=== PATIENT | female | born 1995 | race Caucasian/White ===

== ENCOUNTER 2019-04-27 17:27 | Outpatient (CLI) | payer OTHER ==
--- NOTE | 2019-04-30 10:11 | Ultrasound Report ---
Reason: GESTATIONAL DIABETES Procedure Date: 04/27/2019 Accession Number: [id number] / [id number] Procedure: US - OB F/U or Repeat CPT Code: Final Report FULL RESULT: EXAM: FOLLOW-UP OBSTETRICAL ULTRASOUND EXAM DATE: 04/27/2019 07:10 PM. CLINICAL HISTORY: GESTATIONAL DIABETES. COMPARISON: None. TECHNIQUE: Real-time sonographic evaluation of the fetus performed by the network engineering advisor. Additional transvaginal imaging to more accurately evaluate cervical length/placental position/etc. Multiple product sales representative static images were saved for review. DATING: Established EGA 35 weeks 3 days with MACK 05/29/2019 based on physician stated. EGA 34 weeks 6 days with MACK 06/02/2019 based on the current ultrasound. GENERAL EVALUATION Hameed . Cardiac activity: 158 bpm. movement: Visualized. Presentation: Cephalic. Placenta: Anterior position. Amniotic fluid: Normal. JEANETH 17.2 cm. MVP 4.4 cm. BIOMETRY Bi-Parietal Diameter (BPD): 8.7 cm, 35 weeks 1 day Head Circumference (HC): 32.4 cm, 36 weeks 4 days Abdominal Circumference (AC): 32.2 cm, 36 weeks 1 day Femur Length (FL): 6.1 cm, 31 week 5 days Estimated Weight: 2548 g, 34 percentile for 35 weeks 3 days. IMPRESSION: 1. Hameed live intrauterine with gestational age 35 weeks 3 days based on physician assigned dating. 2. Estimated weight is within expected limits for assigned dating. Noting femur length is behind expected at 31 weeks 5 days RAFAELA
== END 2019-04-27 17:28 | disposition home or self-care (01) ==
LOC: DI 17:27
PROVIDERS: ATTEND Nurse Practitioner Obstetrics & Gynecology
DX: O24.410 Gestational diabetes mellitus in pregnancy, diet controlled (principal); Z3A.35 35 weeks gestation of pregnancy
CPT/HCPCS: 76816

== ENCOUNTER 2019-05-01 12:01 | Outpatient (CLI) | payer OTHER ==
[2019-05-02 21:25] LABS: TRICHOMONAS VAGINALIS DNA NEGATIVE (NEGATIVE)
== END 2019-05-01 23:59 | disposition home or self-care (01) ==
LOC: LAB.R 12:01
PROVIDERS: ATTEND Nurse Practitioner Obstetrics & Gynecology
DX: Z36.85 Encounter for antenatal screening for Streptococcus B (principal); Z36.89 Encounter for other specified antenatal screening
CPT/HCPCS: 87491; 87591; 87661; 87797

== ENCOUNTER 2019-05-18 07:00 | Outpatient (CLI) | payer OTHER | END 2019-05-18 23:59 | disposition home or self-care (01) | LOC: LAB.R 07:00 | PROVIDERS: ATTEND Obstetrics & Gynecology | DX: Z22.330 Carrier of Group B streptococcus (principal) | CPT/HCPCS: 87081; 87797 ==

== ENCOUNTER 2019-05-21 22:46 | Outpatient (CLI) | payer OTHER ==
[2019-05-21 23:11] VITALS: BP 123/84
[2019-05-22 00:18] LABS: RUPTURE OF MEMBRANES PLUS NEGATIVE (NEGATIVE)
--- NOTE | 2019-05-31 09:33 | PROCEDURE REPORT ---
- HPI Diagnosis/Indication for NST: Other (Rule out SROM) Current EDU 05/29/19 Gestation 38 Weeks and 6 Days 1 Para 0 Vital Signs Temperature 36.7 C 05/21/19 23:00 Heart Rate 88 05/21/19 23:00 Respiratory Rate 18 05/21/19 23:00 Blood Pressure 123/84 H 05/21/19 23:00 O2 Saturation 100 05/21/19 23:00 Temperature 36.7 C 05/21/19 23:00 Heart Rate 88 05/21/19 23:00 Respiratory Rate 18 05/21/19 23:00 Blood Pressure 123/84 H 05/21/19 23:00 O2 Saturation 100 05/21/19 23:00 - NST Procedure base line 120 good exceleration - Results and Plan Findings/Impression: reactive NST, Rom + negative Plan: return for labor or SROM
== END 2019-05-22 00:47 | disposition home or self-care (01) ==
LOC: WFO 22:46 → FBP 22:48 → WFO 05-22 00:47
PROVIDERS: ATTEND Obstetrics & Gynecology
DX: Z34.03 Encounter for supervision of normal first pregnancy, third trimester (principal); Z3A.38 38 weeks gestation of pregnancy
CPT/HCPCS: 84112; 99213

== ENCOUNTER 2019-05-22 14:11 | Inpatient (IN) | payer OTHER ==
[2019-05-22 15:12] LABS: BASOPHILS % (AUTO) 0.4 %; EOSINOPHILS # (AUTO) 0.1 10^3/uL (0.0-0.7); EOSINOPHILS % (AUTO) 1.1 %; HGB - HEMOGLOBIN 14.1 g/dL (12.0-16.0); LYMPHOCYTES # (AUTO) 1.4 10^3/uL (1.5-3.5); LYMPHOCYTES % (AUTO) 25.5 %; MEAN CORPUSCULAR HEMOGLOBIN 29.3 pg (27.0-31.0); MEAN CORPUSCULAR HGB CONC 33.7 g/dL (32.0-36.0); MEAN CORPUSCULAR VOLUME 86.9 fL (81.0-99.0); MEAN PLATELET VOLUME 11.2 fL (7.9-10.8); MONOCYTES # (AUTO) 0.5 10^3/uL (0.0-1.0); MONOCYTES % (AUTO) 8.9 %; NEUTROPHILS # (AUTO) 3.5 10^3/uL (1.5-6.6); NEUTROPHILS % (AUTO) 63.9 %; PLT - PLATELET COUNT 141 10^3/uL (130-450); RED BLOOD COUNT 4.81 10^6/uL (4.20-5.40); WHITE BLOOD COUNT 5.4 x10^3/uL (4.8-10.8)
[2019-05-22] MEDS: LACTATED RINGERS 1,000 ML IV SCH (15:21)
[2019-05-22] MEDS: SODIUM CHLORIDE FLUSH 0.9% 10 ML SYRINGE IVP PRN ×2 (15:22→23:21)
[2019-05-22] MEDS ORDERED: ceFAZolin 2 GM in SODIUM CHLORIDE 0.9% 100ML 100 ML IV ONE (15:30)
[2019-05-22] MEDS ORDERED: SODIUM CHLORIDE FLUSH 0.9% 10 ML SYRINGE IVP SCH (17:00)
--- NOTE | 2019-05-22 17:26 | HISTORY & PHYSICAL EXAMINATION ---
Admit History - Visit Reason Visit Reason: Other - : 1 Parity: 0 Premature: 0 Ectopic: 0 : 0 Care: positive: [facility] Risk/History: positive: None Complications This : positive: None Smoking Status: Former smoker - Mother's Labs Mother's Blood Type: positive: O Mother's RH: positive: Positive GBS: positive: Group B Strep Positive Rubella Status: positive: Immune Meds/Allgy - Allergies Allergies/Adverse Reactions: Allergies Allergy/AdvReac Type Severity Reaction Status Date / Time Penicillins Allergy Intermediate Rash Verified 05/22/19 16:21 Review of Systems - Constitutional Constitutional: denies: Fatigue, Fever, Chills, Malaise - Eyes Eyes: denies: Blurred vision, Spots in vision, Dipolpia - Cardiovascular Cariovascular: reports: Edema. denies: Irregular heart rate, Palpitations, Chest pain - Gastrointestinal Gastrointestinal: denies: Abdominal pain, Constipation, Diarrhea, Nausea, Vomiting - Integumentary Integumentary: denies: Rash, Pruritis - Neurological Neurological: denies: Headache Physical - Abdominal Exam Vital Signs: Temp Pulse Resp BP Pulse Ox 37.1 C 101 H 16 124/83 H 100 05/22/19 14:40 05/22/19 14:40 05/22/19 14:40 05/22/19 14:40 05/22/19 14:40 Uterine Resting Tone: positive: Soft - Monitoring Heart Rate Baseline: 140 Strip Review: positive: Category I - Presentation Presentation: positive: Vertex - Vaginal Exam Membranes: positive: Membranes intact Dilation (in cm): 4 Effacement (%): 75 Station: positive: -1 Cervical Position: positive: Midposition - Speculum Exam Speculum Exam Performed: positive: No Plan for Labor - Plan For Labor I expect patient to be DC'd or transferred within 96 hours.: Yes Plan for Labor: HPI: Chhaya presents today to [facility] for induction of labor at 39.0wks gestation. She [facility] a patient of [facility] since her transfer of care from [facility] at 32.2wks gestation. She has received regular care throughout the course of her . She has been diagnosed with gestational diabetes and has maintained tight glycemic control with diet. Her growth and JEANETH in the late third trimester were WNL with EFW 34th percentile and JEANETH 17.2. She is also noted to be GBS positive and allergic to penicillin. Due to a lab error there were not sensitivities run with the GBS collection. The patient will be treated with cefazolin per protocol. Upon arrival her cervix was noted to be 3-4/90/-1, midposition, vertex and soft. She was admitted to [facility] for management and will proceed with pitocin IOL after 4 hours of antibiotic treatment per CDC guidelines. OB Hx: G1: Current- G1GDM PMHx: Anxiety, depression, ovarian cysts Surgical Hx: [place] teeth removal (2008), left foot Muniz's neuroma removal Family hx: HTN- father; Diabetes- uncle; cancer- mother Social Hx: Former smoker, no ETOH or IVDA. currently deployed. Mother and father present for support. labs: some labs missing from maternal record due to transfer of care and ordered today. O pos/Rubella immune Gentic testing: neg quad; CF neg FAS: WNL with exception of limited profile view. Anterior placenta, no previa. JEANETH WNL. Glucola ; 1 hour GTT elevated; 3hr GTT 96, 189, 144, 121 - diagnosed GDM TDAP & influenza - outside clinic GBS positive - penicillin allergies- sensitivities pending. Repeat GC/CT negative Growth and JEANETH 04/27/2019 WNL - EFW 34th%tile HSV: denies Breast pump Rx provided MOD: Anticipate ; Expecting a male and planning to name him Israel; desires unmedicated delivery pp contraception: barrier method Physical Exam: Normocephalic, atraumatic Heart RRR w/o M/G/R Lungs CTAB Abdomen gravid, soft, nontender EFW 3200g SVE 3-4/90/-1, midposition, soft, vertex Contractions not palpable or appreciated via tocometry FHR baseline 140s, moderate variability, + accels, no decels Bilateral LE's 1+ pitting edema Mood is good Assessment: 24yo @ 39.0wks gestation by LMP A1GDM GBS positive FHR Category I Plan: Continuous monitoring GBS prophylaxis per protocol Initiate pitocin when 4 hour of prophylaxis for GBS postive status achieved. Reviewed plan of care with patient, family, and labor RN at the bedside who are all in agreement with above plan and deny further questions or concerns at this time.
[2019-05-22] MEDS ORDERED: OXYTOCIN/DEXTROSE 5 % 30 UNIT/500 ML BAG IV SCH (19:15)
[2019-05-22] MEDS ORDERED: SERTRALINE 50 MG TABLET ONE (21:16)
[2019-05-22] MEDS: SERTRALINE 50 MG TABLET PO SCH (21:18)
[2019-05-22] MEDS: ceFAZolin 1 GM in SODIUM CHLORIDE 0.9% MINIBAG 100 ML IV SCH (23:20)
[2019-05-23] MEDS: LACTATED RINGERS 1,000 ML IV SCH (03:24)
[2019-05-23] MEDS: OXYTOCIN/DEXTROSE 5 % 30 UNIT/500 ML BAG IV PRN ×2 (04:45→05:50)
[2019-05-23] MEDS ORDERED: LIDOCAINE-MPF 1% 30 ML VIAL ONE (04:46)
[2019-05-23] MEDS ORDERED: fentaNYL 100 MCG/2 ML VIAL ONE (04:46)
[2019-05-23] MEDS ORDERED: LIDOCAINE-MPF 1% 2 ML AMP SUBQ ONE (04:51)
[2019-05-23] MEDS ORDERED: fentaNYL 100 MCG/2 ML VIAL IVP SCH (05:00)
[2019-05-23] MEDS ORDERED: WITCH HAZEL/GLYCERIN 1 PAD TOP PRN (05:33)
[2019-05-23] MEDS ORDERED: HYDROCORTISONE 1% CREAM 28 GM TUBE PR PRN (05:33)
[2019-05-23] MEDS ORDERED: OXYTOCIN/DEXTROSE 5 % 30 UNIT/500 ML BAG IV PRN (05:34)
--- NOTE | 2019-05-23 05:45 | DELIVERY NOTE ---
Delivery Note - Labor Labor: positive: Spontaneous, Augmented by ARM - Infant Delivery Method Delivery Method: positive: Spontaneous vaginal delivery - Presentation Presentation: positive: Vertex, ELAINA - left occiput anterior - Nuchal Cord Nuchal Cord: positive: None - Amniotic Fluid Description Amniotic Fluid Description: positive: Light meconium - Episiotomy Type Episiotomy Type: positive: None - Laceration Laceration: positive: 2nd degree, Vaginal - Suture Suture Type: positive: Vicryl Suture Size: positive: 2-0 - Delivery Outcome Delivery Outcome: positive: Livebirth - Tiger Tiger: positive: Placed in direct skin contact with mother, Suctioned, Bulb syringe, Stimulated, Warmed, Harrison used, Warmer used sex: positive: Male - Cord Cord: positive: 3 vessels - Placenta Placenta: positive: Intact, Spontaneous - Estimated Blood Loss Estimated Blood Loss (in cc): 250 - Post Delivery Events Post Delivery Events: positive: No post delivery events - Delivery Comments (Free Text/Narrative) Delivery Comments (Free Text/Narrative): Labor: This 24yo @ 39.1wks gestation presents to [facility] on 05/22/2019 for induction of labor secondary to A1GDM which has remained well controlled with diet through the duration of her . She was also noted to be GBS positive and allergic to penicillin. Upon arrival pt was 3-4/90/-1, vertex with intact membranes and secondary to her GBS positive status antibiotics were initiated for GBS prophylaxis per protocol prior to induction. Secondary to staffing concerns, induction of labor was delayed, however patient began to spontaneously contract with increased frequency and intensity at approximately 0100. FHR pattern demonstrated Category I baseline throughout labor. SVE 8/90/0, vertex with intact membranes and pt feels increased vaginal pressure. AROM occurred at 0357 and was noted to be a moderate amount of light meconium stained amniotic fluid. Respiratory therapy was notified to stand by PRN at time of delivery. Patient progressed to c/c/+2 at 0408 with onset of active pushing at 0412. : Normal of viable male on 05/23/2019 @ 0440. No nuchal cord. The was placed on maternal abdomen, stimulated, dried, and bulb syringe was use. No respiratory effort appreciated in addition to poor tone and color. Umbilical cord was doubly clamped and cut by CNM. Infant was brought to warmer for support. Apgars were 5/7/8 at 1, 5, and 10 minutes respectively. Pitocin administered via IV for hemostasis. Cord blood was obtained. 3VC. EBL 250mL. Fourth stage: Uterine fundus firm and there is no excessive bleeding. The perineum, vagina, and cervix were inspected and found to have 2nd degree vaginal laceration which was repaired using a 2-[address]-1 needle in standard fashion under sterile conditions. Vaginal examination following repair was done. Tissues well approximated. Family bonding well. Both mother and baby were left in stable condition.
[2019-05-23] MEDS: ACETAMINOPHEN 500 MG TABLET PO SCH ×2 (06:34→18:07)
[2019-05-23] MEDS: IBUPROFEN 800 MG TABLET PO SCH ×2 (06:34→18:20)
[2019-05-23] MEDS: ceFAZolin 1 GM in SODIUM CHLORIDE 0.9% MINIBAG 100 ML IV SCH (11:54)
[2019-05-23 13:00] LABS: HEPATITIS B SURFACE ANTIGEN NON-REACTIVE (NON-REACTIVE)
[2019-05-23 14:10] LABS: HIV AG/AB 4TH GEN NON-REACTIVE (NON-REACTIVE)
[2019-05-23] MEDS: SERTRALINE 50 MG TABLET PO SCH (21:46)
[2019-05-24 07:52] VITALS: BP 120/90
[2019-05-24] MEDS: ACETAMINOPHEN 500 MG TABLET PO SCH ×2 (07:57→08:04)
[2019-05-24] MEDS: IBUPROFEN 800 MG TABLET PO SCH ×3 (07:57→08:04)
--- NOTE | 2019-05-24 08:36 | Discharge Plan ---
Discharge Plan Problem Reviewed?: Yes Disposition: Home, Self Care Condition: Good Diet: Regular Activity Restrictions: No Restrictions Shower Restrictions: No Driving Restrictions: No Weight Bearing: Full Weight No Smoking: If you smoke, Please STOP! Call for help. Follow-up with: Mary Jo Keys CNM, ARNP [Provider Admit Priv/Credential] -
--- NOTE | 2019-05-24 08:40 | PROVIDER PROGRESS NOTE ---
Subjective - Subjective Subjective: FINAL PROGRESS NOTE: S: Bonding well with baby. without difficulty. Pain well controlled with oral medications. She states she is feeling slightly sore but overall feeling well. Bleeding is decreased and is light. She states she is feeling tired and baby likes to be held and nurse all night. She is feeling well about going home today and feels well supported and she is staying with her parents. O: T 36.9, RR 92, BP 120/90, RR 18 Heart RRR w/o M/G/R, lungs CTAB, abdomen soft and nontender with fundus firm at U-1, light lochia rubra, bilateral LE's no edema. A: 24yo -->P1 PPD#1 s/p TSVD of viable male infant 2nd degree perineal laceration intact P: Reviewed pp self care and warning s/sx and when to present. Advised continuation of PNV while Advised OTC Ibuprofen and tylenol PRN for pain management. F/u in 1 week for support visit and in 3 weeks for routine pp visit or sooner PRN. Pt verbalized understanding and agrees to above plan. She denies further questions or concerns at this time. Objective - Vital Signs/Intake & Output Vital Signs: Vital Signs x48h Temp Pulse Resp BP BP Pulse Ox 05/24/19 07:49 36.9 C 92 18 120/90 H 98 05/24/19 04:00 36.5 C 97 16 126/79 100 Intake & Output: Intake & Output 05/21/19 05/22/19 05/23/19 05/24/19 23:59 23:59 23:59 23:59 Intake Total 550 2200 400 Output Total 1250 Balance 550 950 400 - Lab Results Fish Bones: 05/22/19 14:50 Other Labs: Lab Results x24hrs 05/22/19 05/22/19 Range/Units 14:50 14:50 Hep Bs Antigen NON-REACTIVE (NON-REACTIVE) HIV 1&2 Ag/Ab, 4th Gen NON-REACTIVE (NON-REACTIVE)
--- NOTE | 2019-05-24 09:36 | DISCHARGE SUMMARY ---
Physician: SAL North DATE OF ADMISSION: 05/22/2019 DATE OF DISCHARGE: 05/24/2019 DIAGNOSES ON ADMISSION 1. A 24-year-old G1, P0 at 39.1 weeks' gestation. 2. Group B streptococcus positive 3. ALLERGIC TO PENICILLIN. DIAGNOSES ON DISCHARGE 1. A 24-year-old G1, P1-0-0-1, status post spontaneous vaginal delivery on 05/23/2019. 2. Normal recovery. 3. . HISTORY OF PRESENT ILLNESS: She is a patient of [facility] who presented on 020 for induction of labor secondary to A1 gestational diabetes, which had remained well controlled t hroughout the duration of her . She was also noted to be GBS positive and ALLERGIC TO PENIC ILLIN. Upon arrival, she was 3-4 cm dilated, 90% effaced, -1 station in vertex with intact membranes . Secondary to her GBS positive status, antibiotics were initiated for prophylaxis per protocol prio r to her induction. Secondary to staffing concerns, her induction of labor was delayed. However, the patient began to spontaneously contract and she progressed to 8 cm dilated, 90% effaced, and 0 stati on. Artificial rupture of membranes occurred at 0357 was noted to be a moderate amount of lightly me conium-stained amniotic fluid. The respiratory therapist was notified to standby as needed at the me of delivery. She progressed to spontaneously deliver a viable male on 05/23/2019 at 0440. Due to poor tone, color and little respiratory effort, the infant was brought to the warmer f or support. Apgars were 5, 7, and 8 at 1, 5 and 10 minutes respectively. The perineum, vagina and c ervix were inspected and found to have a second-degree vaginal laceration, which was repaired using a 2-0 Vicryl on a CT1 needle in standard fashion under sterile conditions. EBL 250 mL. She has been doing well in her course. She is urinating without difficulty and her lochia is normal. Her pain is well controlled with oral medications. She has been advised to continue her vitamin while , and to take ibuprofen and Tylenol gdma-ipo-barianl as needed f or pain management. She will follow up in one week for support visit if needed and then katerina thompson in three weeks for routine visit. She has been given precautions to call if she has a ny worsening fevers, chills, abdominal pain, increased vaginal bleeding or foul-smelling vaginal loch ia. TD: 05/24/2019 08:47
--- NOTE | 2019-05-24 12:00 | Labor Flowsheet ---
Labor Flowsheet Datetime Report Generated by CPN: 05/24/2019 11:59 Datetime: 05/24/2019 07:32 VITAL SIGNS NBP Sys/Renuka/Mean (mmHg): 120 : 90 : 96 Pulse: 94 LaborFlag: Labor Datetime: 05/23/2019 16:33 SpO2 (%): 99 Datetime: 05/23/2019 04:40 UTERINE ACTIVITY Monitor Mode: External Frequency (min): 1-2 Quality: Strong Duration (sec): 80-150 Pattern: Normal: <= 5 Contractions in 10 Minutes Resting Tone (Palpate): Relaxed ASSESSMENT A Monitor Mode: Telemetry FHR Baseline Rate : 135 Variability: Moderate 6-25 bpm Accelerations: None Decelerations: Variable Category: Category II Datetime: 05/23/2019 04:12 STAGE 2 Pushing: Coached on Pushing; Urge to Push Pushing Position: Pushing Lithotomy Pushing Progress: Descent with Pushing; Pushing Effectively with Contractions; Ineffective Pushing Stage 2 Comments: out of control w/ctx and pushing Datetime: 05/23/2019 04:06 VAGINAL EXAM Dilatation (cm): 10.0 Effacement (%): 100 Exam by: Ludmila CNM Vaginal Bleeding: Normal Show Cervix, Consistency: Soft Cervix, Position: Anterior Datetime: 05/23/2019 04:04 Patient Care Comments: 250ml emesis Datetime: 05/23/2019 04:02 Nausea/Vomiting: Present Maternal Comments: vomiting Datetime: 05/23/2019 03:57 Membrane Status: Ruptured Membranes Ruptured Date/Time: 05/23/2019 03:57 Membranes Rupture Method: Artificial Amniotic Fluid Color: Light Meconium Amniotic Fluid Amount: Large Amniotic Fluid Odor: None Datetime: 05/23/2019 03:56 Pain Assessment Comments: 9.5 Datetime: 05/23/2019 03:53 Stage of : Labor Provider Reviewed Strip: Yes COMMUNICATION Communication: Provider at Bedside Provider Notified (Name): Ludmila Notification Reason: Status Update; Status; Labor Status; Membrane Status; Uterine Activity; Pain Communication Comments: Ludmila here Datetime: 05/23/2019 03:33 Station: 0 Vaginal Exam Comments: bulgy bag Datetime: 05/23/2019 03:15 PATIENT CARE Oxygen Method: Room Air Datetime: 05/23/2019 03:10 PAIN Pain Scale: 8 Pain Presence: Intermittent Pain Type: Contraction Pain Location: Abdomen Datetime: 05/23/2019 02:00 Pain Relief Measures: Comfort Measures Pain Coping: Talking Through Contractions; Breathing Through Contractions Comfort Measures: Breathing/Relaxation Datetime: 05/23/2019 01:56 Respirations: 20 Datetime: 05/23/2019 01:54 Contraction Comments: pt reports 3 UCs in 10min FHR Baseline Changes: No Baseline Change Datetime: 05/23/2019 00:27 Comments: Monitors off for sleep Datetime: 05/22/2019 23:44 Monitor Interventions for FHR: Ultrasound Adjusted Datetime: 05/22/2019 23:20 Medication Comments: Cefazolin 1gm Datetime: 05/22/2019 23:02 MATERNAL ASSESSMENT Level of Consciousness: Fully Conscious DTR's/Clonus: DTRs 1+ Headache: Temporal Breath Sounds, Left: Clear and Equal Breath Sounds, Right: Clear and Equal RUQ Epigastric Pain: Denies Patient Position/Activity: Right Tilt; Semi-Fowlers Datetime: 05/22/2019 22:58 Pain Goal: 5 Datetime: 05/22/2019 20:02 Temperature (C): 37.2 Temperature Route: Oral Datetime: 05/22/2019 15:23 MEDICATIONS Antibiotics: Ancef IV (Gm) @ 2g
== END 2019-05-24 11:45 | disposition home or self-care (01) | DRG 807 ==
LOC: WFO 14:11 → FBP 14:17 → WFO 14:33 → FBP 14:35
PROVIDERS: ADMIT Nurse Practitioner Obstetrics & Gynecology; ATTEND Nurse Practitioner Obstetrics & Gynecology
PROC: 10E0XZZ Delivery of Products of Conception, External Approach (ICD-10-PCS; principal; 2019-05-23)
PROC: 0KQM0ZZ Repair Perineum Muscle, Open Approach (ICD-10-PCS; 2019-05-23)
PROC: 10907ZC Drainage of Amniotic Fluid, Therapeutic from Products of Conception, Via Natural or Artificial Opening (ICD-10-PCS; 2019-05-23)
DX: O24.420 Gestational diabetes mellitus in childbirth, diet controlled (principal); Z37.0 Single live birth; O99.824 Streptococcus B carrier state complicating childbirth; O70.1 Second degree perineal laceration during delivery; O77.0 Labor and delivery complicated by meconium in amniotic fluid; O99.344 Other mental disorders complicating childbirth; F41.9 Anxiety disorder, unspecified; F32.9 Major depressive disorder, single episode, unspecified; Z3A.39 39 weeks gestation of pregnancy; Z87.891 Personal history of nicotine dependence
CPT/HCPCS: 85025; 86762; 87340; 87389; A9270; J7120